=== PATIENT | male | born 1970 | race Caucasian/White ===

== ENCOUNTER 2018-05-11 07:26 | Day surgery (SDC) | payer OTHER ==
--- NOTE | 2018-05-08 14:12 | EKG ---
Test Date: 2018-05-08 Test Time: 13:47:19 Media Sales Consultant: JUAN M MEASUREMENT RESULTS: Intervals: Rate: 77 NJ: 144 QRSD: 106 QT: 400 QTc: 452 Peck: P: 49 NJ: 144 QRS: 62 T: 32 INTERPRETIVE STATEMENTS: Normal sinus rhythm Incomplete right bundle branch block Borderline ECG Compared to ECG 11/04/2009 03:01:03 No significant changes Electronically Signed On 05-08-18 14:11:29 COTTON PICKING MACHINE OPERATOR by Sylvain García
--- NOTE | 2018-05-08 14:15 | RAD REPORT ---
EXAM DESCRIPTION: Ally Galvan (2 Views)05/08/2018 2:10 pm CLINICAL HISTORY: Abdominal pain/preop exam COMPARISON: 2009 FINDINGS: The lungs appear clear of acute infiltrate. The heart is normal size IMPRESSION: No acute abnormalities displayed
[2018-05-11] MEDS ORDERED: NA CHLORIDE 0.9% 1,000 ML ONE (08:26)
[2018-05-11] MEDS ORDERED: MIDAZOLAM HCL 2 MG/2 ML INJ ONE ×2 (08:38→08:46)
[2018-05-11] MEDS ORDERED: ONDANSETRON 4 MG/2 ML VIAL ONE (08:46)
[2018-05-11] MEDS ORDERED: FENTANYL CITR 250 MCG/5 ML ONE (08:46)
[2018-05-11] MEDS ORDERED: PROPOFOL 200 MG/20 ML VIAL IV ONE (08:46)
[2018-05-11] MEDS ORDERED: LIDOCAINE 2% MPF 5 ML VIAL ONE (08:46)
[2018-05-11] MEDS ORDERED: ROCURONIUM 50 MG/5 ML VIAL IV ONE (08:47)
[2018-05-11] MEDS ORDERED: CEFOXITIN/SWI 1gm 1 GM/10 ML SYR ONE (08:50)
[2018-05-11] MEDS ORDERED: BUPIVACAINE 0.5% PF 10 ML VIAL ONE (09:02)
--- NOTE | 2018-05-11 09:52 | P.BOP ---
Preoperative diagnosis: RLQ intractable abdominal pain, appendicitis Postoperative diagnosis: same Primary procedure: Diagnostic laparoscopy, laparoscopic appendectomy Calibrator Barometers: Herminia Blanchard (Mukund) Estimated blood loss: <10cc Specimen: haylie Findings: see dicta Anesthesia: General Complications: None Transferred to: Recovery Room Condition: Good
[2018-05-11] MEDS ORDERED: KETOROLAC 30 MG/ML INJ ONE (09:57)
[2018-05-11] MEDS ORDERED: GLYCOPYRROLATE 0.2 MG/ML SYR ONE (10:04)
[2018-05-11] MEDS ORDERED: NEOSTIGMINE 1 MG/ML -5 ML SYRINGE ONE (10:06)
[2018-05-11] MEDS: MORPHINE 4 MG/ML SYR ONE ×2 (10:13→10:18)
[2018-05-11] MEDS: MEPERIDINE HCL 25 MG/0.5 ML ONE ×4 (10:24→10:44)
[2018-05-11] MEDS ORDERED: HYDROCODONE/APAP 5/325 MG TAB ONE (11:48)
--- NOTE | 2018-05-11 22:40 | OP ---
Date of Procedure: 05/11/2018 Surgeon: Handy Singh MD Supervisor Compressed Yeast: Herminia Allen. Preoperative Diagnoses: Right lower quadrant intractable abdominal pain, appendicitis. Postoperative Diagnoses: Right lower quadrant intractable abdominal pain, appendicitis. Procedures: Diagnosed laparoscopy and laparoscopic appendectomy. Estimated Blood Loss: Less than 10 cc. Specimen: Appendix. Findings: The patient has an asymmetrical in shape and color appendix with erythematous and injected with blood vessel dilated. Distal appendix with scar tissue going to the appendix itself. Etiology of that is unknown. The area of the gallbladder, the liver, and the stomach with no masses seen, at least extraluminal. Ascending, transverse, and descending colon with no ischemia seen and no masses seen. The patient has a large amount of fatty tissue intraperitoneally. The pelvis with no masses seen and no hernia seen. Abdominal cavity with no hernia seen. Retroperitoneum with no masses seen. The small bowel with no extraluminal masses seen. Once again, everything point at an erythematous, asymmetrical appendix with scar tissue next to it. History Of Present Illness: This is the case of a 47-year-old patient who comes to us with intractab le right lower quadrant pain. Etiology of that is unknown. He has multiple imaging for the last 2 w eeks. Multiple visits to the primary physician, but still not able to find the etiology of the pain. This is located right on the right side region, at [place] point. He had a previous CT scan, did not help much. Second CT scan, they were not sure if he has colitis or not, but the pain is not on t he left side. It is right at [place] point on the right side, very specific pain with a camera. We cannot see any hematoma. We cannot see any obvious hernias. He does not remember any tr auma, any dysuria, hematuria, hematochezia, or melena. At this moment, we are afraid to do a colonos copy since we have intractable abdominal pain in the right side. So, we will offer him diagnostic la paroscopic possible open appendectomy and any other indicated procedure with benefits, alternatives, and risks including, but not limited to infection, bleeding, damage to adjacent structures, anesthesi a complication, negative appendix, negative exploration, TN, and even . He also understands thi s may not relieve any symptoms. He might need more than one surgical intervention. He understood, s igned a consent. The patient understands the importance of and was counseled about losing weight. Description Of Procedure: The patient was brought to the operating room, placed in supine position. Anesthesia was done without complication. Abdominal area was prepped and draped in a sterile fashio n. Marcaine 0.5% was injected for local anesthetic, followed by sharp incision of the skin in the in fraumbilical region. Incision was carried down to fascia, which was opened under direct vision. Per itoneum was encountered, opened under direct vision. Vicryl #1 placed inside the fascia. Mario tro car was carefully introduced. No bleeding was obtained. I placed 2 more trocars, 5 mm each one of t hem, suprapubic and left lower quadrant. Under direct visualization, we proceed to diagnostic lap wi th the findings that are described at the beginning of this dictation. The area of the appendix look s asymmetrical in shape and color, especially the distal part of the appendix with injection and eryt rand on the distal part of the appendix and increased in size. There are multiple adhesions of the d istal part of the appendix. The etiology of that is unknown. We were able to take those adhesions w ith the mesentery. We created a window in the base of the appendix, transected that with an Endo LENNY 45 mm, 3.5. That is an area that is spared from this abnormality. On the mesoappendix, we removed the mesoappendix and the adhesions of the appendix in one unit with the Endo-LENNY 45 mm, 2.5. No armin l leak. No bleeding. Appendix was removed from abdominal cavity using an EndoCatch through the umbi lical incision. The area was inspected once again after irrigation and suction. No bleeding. At th at moment, I proceeded to remove the trocars under direct vision, deflated pneumoperitoneum, closed t he fascia with #1 Vicryl, irrigated subcutaneous incision, closed that with 3-0 chromic, and skin in a subcuticular closure with Steri-Strips on top. Sponge counts and instrument counts were correct. The patient tolerated the procedure well. The patient was sent to recovery room in stable condition. The patient will still have to have a colonoscopy after he recovers from this. Conditions: We are also going to give the antibiotics since there is questionable colitis and append icitis; and so, we are going to give one antibiotic to cover both. JOHNNY/MIRNA Voice ID: [id number] Report ID: [id number]
--- NOTE | 2018-05-11 22:46 | DS ---
Date of Discharge: 05/11/2018 Diagnoses: Right lower quadrant intractable abdominal pain, appendicitis, and colitis. Procedures: Diagnostic laparoscopy, laparoscopic appendectomy. Disposition: Home. Activity: As tolerated. No heavy lifting. Followup: Follow up in my office in 1 week. Call for appointment at [phone]. Keep area dry for 48 hours, then may shower. Keep Steri-Strips intact. Medications: Include Levaquin 750 p.o. daily, Tylenol No. 3 q.4 hours p.r.n. pain, and Phenergan 25 p.o. q.6 hours p.r.n. nausea. JOHNNY/MIRNA Voice ID: [id number] Report ID: [id number]
== END 2018-05-11 12:00 | disposition home or self-care (01) ==
LOC: OR 07:26
PROVIDERS: ATTEND Surgery
PROC: 0DTJ4ZZ Resection of Appendix, Percutaneous Endoscopic Approach (ICD-10-PCS; principal; 2018-05-11 09:30)
DX: K37 Unspecified appendicitis (principal); I10 Essential (primary) hypertension; E11.9 Type 2 diabetes mellitus without complications
CPT/HCPCS: 71046; 82962; 88304; 93005; J2175; J2250; J2405; J2704; J2710; J3010; J7030

== ENCOUNTER 2019-06-14 06:55 | Day surgery (SDC) | payer BC ==
[2019-06-14 07:37] LABS: Basophils % 0.5 % (0-1.3); Hematocrit 42.6 % (39.6-49.0); Lymphocytes % 27.9 % (15.3-44.8); RBC Red Blood Cell Count 4.86 M/uL (4.33-5.43)
[2019-06-14 07:43] LABS: BUN Blood Urea Nitrogen 16 mg/dL (7-18); Bicarbonate 26 mmol/L (21-32); Glucose Level 226 mg/dL (74-106); Potassium 3.8 mmol/L (3.5-5.1); Sodium Level 137 mmol/L (136-145)
--- NOTE | 2019-06-14 08:09 | EKG ---
Test Date: 2019-06-14 Test Time: 07:54:19 Payroll Benefits Clerk: JUAN M MEASUREMENT RESULTS: Intervals: Rate: 90 UT: 152 QRSD: 112 QT: 386 QTc: 472 Henderson: P: 42 UT: 152 QRS: 60 T: 49 INTERPRETIVE STATEMENTS: Normal sinus rhythm Normal ECG Compared to ECG 05/08/2018 13:47:19 No significant changes Electronically Signed On 06-14-19 08:08:30 SIDE DOOR WORKER by Sylvain García
--- NOTE | 2019-06-14 08:13 | RAD REPORT ---
EXAM DESCRIPTION: Ally Shine And Miranda (2 Views)06/14/2019 7:29 am CLINICAL HISTORY: Preop for abdominal surgery COMPARISON: None FINDINGS: 9 millimeter left lower lobe nodule unchanged Right lung appears clear Heart is normal size but
--- NOTE | 2019-06-14 08:51 | P.BOP ---
Preoperative diagnosis: Left abdominal wall tender palpable subcutanous mass Postoperative diagnosis: same Primary procedure: Excisional biopsy of Left abdominal wall subcutanous mass 3x3cm Estimated blood loss: <10cc Specimen: mass Findings: partially intramuscular subcutaneous mass Anesthesia: General Complications: None Transferred to: Recovery Room Condition: Good
[2019-06-14] MEDS: MEPERIDINE HCL 50 MG/ML ONE ×2 (09:11→09:16)
[2019-06-14 09:32] VITALS: TEMP 98.9
[2019-06-14] MEDS ORDERED: MEPERIDINE HCL 25 MG/0.5 ML ONE (09:38)
[2019-06-14] MEDS ORDERED: ONDANSETRON 4 MG/2 ML VIAL ONE (09:41)
[2019-06-14 10:36] VITALS: BP 128/70; O2SAT 93
--- NOTE | 2019-06-14 23:05 | OP ---
Date of Procedure: 06/14/2019 Surgeon: Handy Singh MD Diagnosis: Left upper abdominal wall tender, palpable, subcutaneous mass. Postoperative Diagnosis: Left upper abdominal wall tender, palpable, subcutaneous mass. Procedure: Excisional biopsy of left abdominal wall tender subcutaneous mass 3 x 3 cm. Specimen: Mass. Finding: Mass fatty tumor which is partially subcutaneous, partially intramuscular. Anesthesia: General plus local. Indications: This is a case of a 48-year-old patient, comes to us with a tender left upper abdominal wall palpable subcutaneous mass. He wants it excised. The benefits, alternatives, and risks of exc ision fully explained which include but are not limited to infection, bleeding, damage to adjacent st ructures as complication, recurrence, ND, and even . He also understands this may not relieve s ymptoms, he might need more than one surgical intervention. He understood, signed a consent. The ar ea of concern was marked by me on the patient in the holding room. Description Of Procedure: Patient was brought to the operating room, placed in supine position. Ane sthesia was done without complication. Abdominal area was prepped and draped in sterile fashion. We proceeded to make an incision over the area that was palpated and marked. Incision was carried down to subcutaneous tissue. We noticed a fatty tumor present that was partially intramuscular, so part of the muscle fibers of that area has to be a spread apart to get the intramuscular component of this mass intact. The area was irrigated. We cannot palpate any other masses. The area was irrigated. Muscle fibers were approximated with chromic, the subcutaneous tissue with chromic and then the skin was chromic again. Patient tolerated the procedure well. Sponge count and instrument counts were c orrect. Hemostasis and local anesthesia were applied before closure. Patient was sent to recovery i n stable condition. HM/MODL Voice ID: [id number] Report ID: [id number]
--- NOTE | 2019-06-14 23:06 | DS ---
Date of Discharge: 06/14/2019 Diagnosis: Left abdominal wall tender, palpable subcutaneous mass. Procedure: Excision biopsy of left above the left abdominal wall tender subcutaneous mass, 3 x 3 cm. Disposition: Home. Activity: As tolerated. No heavy lifting. Followup: In 1 week. Call for appointment [phone]. Keep area dry for 48 hours, then may shower. Medications: Include Bactrim DS b.i.d. and Vicodin q.4 hours p.r.n. pain. JOHNNY/MIRNA Voice ID: [id number] Report ID: [id number]
== END 2019-06-14 10:25 | disposition home or self-care (01) ==
LOC: PRE 06:55
PROVIDERS: ATTEND Surgery
PROC: 0KBL0ZZ Excision of Left Abdomen Muscle, Open Approach (ICD-10-PCS; principal; 2019-06-14 08:30)
DX: D17.9 Benign lipomatous neoplasm, unspecified (principal); E11.9 Type 2 diabetes mellitus without complications; I10 Essential (primary) hypertension; G47.30 Sleep apnea, unspecified
CPT/HCPCS: 93005; 85025; 80048; 36415; 82947; 88304; 71046; 22900; J2175 ×2; J2405